=== PATIENT | female | born 1960 | race African-American/Black ===

== ENCOUNTER → 2018-10-28 | Outpatient (CLI) | payer OTHER ==
[~2018-10-28] VITALS: Ht 170.2 cm; Wt 76.3 kg
[~2018-10-28] MED LIST: HYDROCODONE-AP1 EA11 PO; MAXZIDE-25 MG1 EACH PO; NORCO 7.5-3251 EACH PO; PREMARIN0.625 MG PO; RAMIPRIL5 MG PO; SYNTHROID125 MC1 PO
--- NOTE | ~2018-10-28 | HPC ---
[facility] [place] [address] PAIN MANAGEMENT CONSULTATION Name: CHAZ CARDENASCHRISTINE [facility] #: REG CLHeather Conner#: [id number] Admission: 10/28/18 ������������������ Attend Phys: Lucas Kiran MD Discharge: ������������������ Date of : 62 Report #: [id number] THIS REPORT FOR: //name// CC: [facility] physician/PCP JODI Kiran DATE OF SERVICE: 10/28/2018 CHIEF COMPLAINT: Chronic low back pain with spondylosis, chronic opioid use for intractable pain. I am seeing the patient today at her request. She is transitioning back to [facility] for medication management. She was previously seen by Dr. Job Cardenas at [facility]. Dr. Cardenas provided her with hydrocodone 7.5/325, taken on a daily basis to help control back pain. She reports a distant history of sciatica with numbness and foot drop; however, more recently, the pain has been lumbosacral in nature. It is worse with lifting, standing on a hard surface. She gets relief from yoga, Pilates Reformer, neck hammock and reinforcement shoes. She describes her pain as an aching, pulling, gnawing sensation. On an average day, she scores between 4 and 8. For many years dating back at least 2016, she has been taking hydrocodone up to 4 times a day. She has tapered her dose slowly now down to hydrocodone 7.5/325 seventy five tablets per month. Some days, she is able to get by on two. Her morphine milligram equivalent is 18.75. She denies side effects. She is grateful for the pain relief and improvement in her day-to-day activities that she sees when her pain is under good control. She is carefully safeguarded on her medications and there has been no history of lost prescriptions or other concerns. She has completed an opioid risk tool at our request and her score is 1. She is considered at low risk for addiction by the tool. She has completed a functional assessment score suggesting impact of pain and her score is 23. She scores highest for sleep, which is 8/10. She has always had difficulty sleeping. CURRENT MEDICATIONS: Synthroid, ramipril, triamterene, Premarin, hydrocodone 7.5/325, #75 tablets per month. ALLERGIES: BETADINE. PAST MEDICAL HISTORY: Remarkable for tonsillectomy in 1974, hysterectomy in 2001, hypothyroidism, recently diagnosed and hypertension. 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 She and her are now empty nesters. [place] [address] PAIN MANAGEMENT CONSULTATION Name: [facility]ST[facility] CARDENAS [facility] CINTIA Conner#: [id number] Admission: 10/28/18 ������������������ Attend Phys: Lucas Kiran MD Discharge: ������������������ Date of : 62 Report #: [id number] children, 2 adopted children and kept 2 foster children with them through high school. She denies use of tobacco, but enjoys an alcoholic beverage in social setting 2-3 times a week. Her medications are carefully timed around the alcohol and she does not report any interference or complications related to the combination. REVIEW OF SYSTEMS: Positive for night sweats, fatigue, weakness, blurred vision, nocturia, numbness and tingling sensations into the hands, insomnia and some concerning memory loss. She reports that she may have had some plaques noted on her brain, although she was never given a diagnosis of multiple sclerosis or other neurologic disorder. She has not routinely followed with the neurologist. PHYSICAL EXAMINATION: GENERAL: She is a soren 58-year-old. VITAL SIGNS: Blood pressure is 124/83, heart rate 16, respirations 24. She is 5 feet 7 inches, 168 pounds. Her BMI is 26.3. Her pain intensity is 5/10. She moves independently from sitting to standing position, walks without antalgic features. Her gait is steady. HEENT: Normal. Pupils are equal, round, react to light. EOMs are intact. Mucous membranes are moist. CHEST: Clear to auscultation. CARDIAC: Rhythm is regular. MUSCULOSKELETAL: Examination of the spine reveals normal alignment. Good range of motion of the cervical spine, excellent range of motion of the lumbar spine in flexion, extension, rotation, and tfvr-je-olfo tilt. This does not exacerbate pain. Straight leg raising bilaterally is normal. NEUROLOGIC: Reveals normal sensation throughout. Muscle strength is 5/5 in the upper and lower extremities. Deep tendon reflexes are 1-2+ at biceps, triceps and brachioradialis, 2+ at knees and ankles. No evidence of hyperreflexia. IMPRESSION: 1. Lumbar spondylosis. There is no evidence of radicular symptoms at this time. 2. Hypothyroidism, recently diagnosed. 3. Insomnia. 4. Concerns of short term memory loss. We discussed the possible role of opioids and her concerns of memory, but otherwise she has no other cognitive side effects. I am not sure the two are related. She denies other side effects. We talked about the opioid crisis. We discussed the CDC guidelines. We talked about the importance of following the 12-points of the CDC guidelines and I reviewed them for her. I have agreed to transition her medication to our program and at a morphine milligram equivalent of less than 50. I would be [place] [address] [place] [address] PAIN MANAGEMENT CONSULTATION Name: CHAZ CARDENASCHRISTINE [facility] REG CINTIA Kat.#: [id number] Admission: 10/28/18 ������������������ Attend Phys: Lucas Kiran MD Discharge: ������������������ Date of : 62 Report #: [id number] willing to see her longer than monthly intervals. Dr. Cardenas saw her at 3-month intervals. We discussed careful safeguarding the medication. She has younger family members and friends who may be in and out of their home. She has promised me that she will do so. I have discussed the likelihood that at some point in time a random drug screen will be performed, perhaps at the next visit I will see. Medications were provided. Questions were answered. Documents were signed for the opioid agreement and I will see her back in the pain clinic in 2-3 months. ��������������������������������������������� ���������������������������������������� By: ��������������������������������������������� 1612 0255 Lucas Kiran MD /nt
--- NOTE | 2018-10-28 09:22 | NUR ---
Pain Clinic Assessment: 1. History of Osteoarthritis: Not Applicable History of Rheumatoid Arthritis: Not Applicable 2. Height: 5 ft. 7 in. 170.2 cm. Weight: 168.2 lb. oz. 76.295 kg. Patient's BMI: 26.3 3. Vital Signs: BP: Pulse: Resp: Temp: 02 Sat: ECG Mon: 4. Pain Intensity: 5 5. Fall Risk: Dizziness: N Needs help standing or walking: N Fallen in the last 3 months: Y Fall risk comments: 6. Patient on Blood Thinner: None 7. History of Hypertension: Y 8. Opioid Therapy greater than 6 weeks: N Opiate Contract Signed: 9. Risk Assessment Tool Provided: 10. Functional Assessment Tool: 11. Recreational Drug Use: Never Drug Type: Tobacco Use: Never Smoker Tobacco Type: Amount or Packs/day: How Many Years: Alcohol Use: No Frequency: Quant:
[2018-10-28 10:26] VITALS: BP 124/83
== END ==
LOC: PAIN 06:37
DX: M47.816 Spondylosis without myelopathy or radiculopathy, lumbar region (principal); I10 Essential (primary) hypertension; E03.9 Hypothyroidism, unspecified; G47.00 Insomnia, unspecified

== ENCOUNTER → 2019-01-24 | Outpatient (CLI) | payer OTHER ==
[~2019-01-24] VITALS: Ht 170.2 cm; Wt 75.9 kg
[2019-01-24 10:24] VITALS: BP 121/81
--- NOTE | 2019-01-24 10:39 | NUR ---
Pain Clinic Assessment: 1. History of Osteoarthritis: Not Applicable History of Rheumatoid Arthritis: Not Applicable 2. Height: 5 ft. 7 in. 170.2 cm. Weight: 167.4 lb. oz. 75.932 kg. Patient's BMI: 26.2 3. Vital Signs: BP: 121/81 Pulse: 99 Resp: 14 Temp: 02 Sat: 97 ECG Mon: 4. Pain Intensity: 3 5. Fall Risk: Dizziness: N Needs help standing or walking: N Fallen in the last 3 months: N Fall risk comments: 6. Patient on Blood Thinner: None 7. History of Hypertension: Y 8. Opioid Therapy greater than 6 weeks: N Opiate Contract Signed: 9. Risk Assessment Tool Provided: 10. Functional Assessment Tool: 11. Recreational Drug Use: Never Drug Type: Tobacco Use: Never Smoker Tobacco Type: Amount or Packs/day: How Many Years: Alcohol Use: No Frequency: Quant:
--- NOTE | 2019-01-25 10:14 | HPC ---
[facility] [place] [address] PAIN MANAGEMENT CONSULTATION Name: CHAZ CARDENASCHRISTINE [facility] #[facility] REG CINTIA Conner#: [id number] Admission: 01/24/19 Attend Phys: Liz Vargas Discharge: Date of : 62 Report #: [id number] THIS REPORT FOR: //name// CC: Liz [facility] Phys[facility] staff Lucas Kiran MD DATE OF SERVICE: 01/24/2019 CHIEF COMPLAINT: Chronic low back pain with spondylosis, chronic intractable pain. HISTORY OF PRESENT ILLNESS: This is a very pleasant 58-year-old female who returns to the Pain Clinic today for a refill of her medications. She finds these very beneficial in controlling her lower back pain. She had previously seen Dr. Job Cardenas at [facility] and has recently returned to our practice here at [place]. She denies leg pain today. She rates her pain score at 3/10. It is a constant aching, pulling feeling, she said worse with lifting and standing, but she keeps very active, doing yoga and Pilates and finds those very beneficial, as well as her medications. She does take these medications on as needed basis; some days requiring no medication, other days requiring 3 of her hydrocodone. She denies any problems with daytime sleepiness or any constipation from these medications. She would like a refill of these today. ALLERGIES: BETADINE. CURRENT LIST OF MEDICATIONS: Hydrocodone 7.5/325 p.r.n., Maxzide 25 mg, ramipril 5 mg and Synthroid 125 mcg. PQRS: 1. She has arthritic changes in her lumbar spine. Denies any rheumatoid arthritis. 2. Height is 5 feet 7 inches, weight is 167, BMI is 26. 3. Vital signs 121/81, pulse is 99, respirations 14, oxygen sat is 97. 4. Pain score 3/10. 5. Denies dizziness, does not need help walking or standing, has not fallen in the last 3 months. 6. The patient is not on any blood thinners, but does have history of hypertension. 7. Opioid therapy is greater than 6 weeks; therefore, we will have her sign an opioid signed contract. Risk assessment tool is low. Functional assessment is . 8. Recreational drug use, she denies. She is not a smoker and does not drink alcohol. [address] [address] PAIN MANAGEMENT CONSULTATION Name: CHRISTINE CARDENAS [facility] #: REG CINTIA Conner#: [id number] Admission: 01/24/19 Attend Phys: Liz Vargas Discharge: Date of : 62 Report #: [id number] According to the prescription monitoring system, the patient is filling appropriately for her medications in a timely fashion. PHYSICAL EXAMINATION: GENERAL: This is a well-developed, well-nourished 58-year-old female who is alert and orientated, placing her pain score at 3/10 today. HEENT: Normocephalic. Pupils are equal, round and reactive to light. Mucous membranes are moist. MUSCULOSKELETAL: She has good range of motion in her lumbar spine with flexion and extension and rotation does not cause significant pain. She walks with a normal gait. She has pain across the lumbar portion of her back. Muscle strength judged to be 5/5 in her upper and lower extremities. IMPRESSION: 1. Lumbar spondylosis. No radicular symptoms today. 2. Hypothyroidism. 3. Insomnia. 4. Medication management under terms of written opioid agreement. We reviewed the fact that opiate medications are being used to provide analgesia adequate to support activities of daily living, not attempting to achieve a specific pain score on the 0-10 Visual Analog Scale. The current opiate medications are providing sufficient analgesia to allow the patient to participate in activities of daily living. The patient is not exhibiting any aberrant behavior suggestive of drug diversion. The patient is not having any adverse reactions to medications. The patient is not suffering from daytime somnolence or mental acuity changes. The patient is managing opiate-induced constipation with appropriate bxft-ujk-dmizgwi agents and dietary considerations. The patient was counseled on concern for caution with operating a motor vehicle while using opiate medications. PLAN: We discussed treatment options with the patient today. The patient is doing quite well on her current regimen of hydrocodone 7.5. Her current morphine mEq if she does take 3 a day is 18 MME per the CDC guidelines, though some days she is requiring no opioids. We will refill these medications, the electronic scribe to [facility], #75 tablets of hydrocodone 7.5 for 3 months. The patient is instructed to call for an appointment when she fills her last prescription. She verbalizes understanding. The patient is seen today in collaboration with Dr. Lucas Kiran. <ELECTRONICALLY SIGNED> By: Liz Vargas 01/25/19 1014 1107 09 Liz Vargas /gamaliel
== END ==
LOC: PAIN 06:46
DX: M47.816 Spondylosis without myelopathy or radiculopathy, lumbar region (principal); E03.9 Hypothyroidism, unspecified; G47.00 Insomnia, unspecified; Z79.891 Long term (current) use of opiate analgesic; Z79.899 Other long term (current) drug therapy; Z88.8 Allergy status to other drugs, medicaments and biological substances

== ENCOUNTER → 2019-04-25 | Outpatient (CLI) | payer OTHER ==
[~2019-04-25] VITALS: Ht 170.2 cm; Wt 76.0 kg
[2019-04-25 09:37] VITALS: BP 133/88
--- NOTE | 2019-04-25 09:48 | NUR ---
Pain Clinic Assessment: 1. History of Osteoarthritis: NONE History of Rheumatoid Arthritis: NONE 2. Height: 5 ft. 7 in. 170.2 cm. Weight: 167.6 lb. oz. 76.023 kg. Patient's BMI: 26.2 3. Vital Signs: BP: 133/88 Pulse: 73 Resp: 14 Temp: 02 Sat: 97 ECG Mon: 4. Pain Intensity: 5 AVG 5. Fall Risk: Dizziness: N Needs help standing or walking: N Fallen in the last 3 months: N Fall risk comments: 6. Patient on Blood Thinner: None 7. History of Hypertension: Y 8. Opioid Therapy greater than 6 weeks: N Opiate Contract Signed: 10/28/18 9. Risk Assessment Tool Provided: 10. Functional Assessment Tool: 11. Recreational Drug Use: Never Drug Type: Tobacco Use: Never Smoker Tobacco Type: Amount or Packs/day: How Many Years: Alcohol Use: No Frequency: Quant:
--- NOTE | 2019-04-25 15:23 | HPC ---
[facility] [address] [place] [address] PAIN MANAGEMENT CONSULTATION Name: WARE RONALDCHRISTINE [facility] #: REG CINTIA Conner#: [id number] Admission: 04/25/19 Attend Phys: Liz Vargas Discharge: Date of : 62 Report #: [id number] THIS REPORT FOR: cc: KENIA SOOD Physician not on staff Liz Vargas ~ DATE OF SERVICE: 04/25/2019 CHIEF COMPLAINT: Chronic low back pain with spondylosis, chronic intractable pain. HISTORY OF PRESENT ILLNESS: This is a very pleasant 58-year-old female who returns to the pain clinic today for refill of her medications. She states that she is doing quite well on her current regimen. Some days, she requires no hydrocodone, other day, she may require 3 of her hydrocodone 7.5/325 to control her low back pain. She states she has recently undergone a "gut cleanse" with apple cider vinegar. She states she felt that her back pain is improved while she was on this cleanse so she has continued to take the apple cider vinegar on a daily basis. The patient reports that her pain is aching pain, worse in the morning. She feels that it is worse with prolonged standing as well. She does participate in yoga and feels that has been beneficial in helping her low back pain as well as the medications. ALLERGIES: BETADINE. CURRENT LIST OF MEDICATIONS: Hydrocodone 7.5/325, triamterene, ramipril, and Synthroid. PQRS: 1. She has arthritic changes in her lumbar spine. Denies rheumatoid arthritis. 2. Height is 5 feet 7 inches, weight is 167, BMI is 26. 3. Vital signs, blood pressure 133/88, pulse is 73, respirations 14, oxygen sat is 97. 4. Pain score is 5/10. 5. Fall risk denies. She does not need help walking, has not fallen in the last 3 months. The patient is not on any blood thinners, but does take medicine for hypertension. Her opioid therapy is greater than 6 weeks; therefore, an opioid signed contract is on the chart. Risk assessment tool is low. Functional assessment is 23/70. 6. She denies any recreational drug use. She does not smoke and does not drink alcohol. According to the prescription monitoring system, the patient is filling appropriately for her medications, filling them in a timely fashion from Dr. Lucas Kiran. She is due to fill her medications today, though she reports [facility] [address] [place] [address] PAIN MANAGEMENT CONSULTATION Name: CHAZ CARDENASCHRISTINE FIONARoom #: REG CLI Dalila#: [id number] Admission: 04/25/19 Attend Phys: Liz Vargas Discharge: Date of : 62 Report #: [id number] she still has several pills left from her last prescription. Her morphine mEq per day, taking her allotted amount is 18mme. PHYSICAL EXAMINATION: GENERAL: This is a well-developed, well-nourished 58-year-old female who appears her stated age, placing her current pain score at 5/10 today. HEENT: Normocephalic, atraumatic. Pupils equal, round and reactive to light. Mucous membranes are moist. MUSCULOSKELETAL: She has tenderness across the lumbosacral region of her spine, but she has good range of motion with flexion and extension not causing increased pain. She walks with a normal gait. Her lower extremity strength judged to be 5/5 in all major muscle groups with good sensation from L1-S2. IMPRESSION: 1. Lumbar spondylosis. 2. Hypothyroidism. 3. Management of medications under terms of written opioid agreement. We reviewed the fact that opiate medications are being used to provide analgesia adequate to support activities of daily living, not attempting to achieve a specific pain score on the 0-10 Visual Analog Scale. The current opiate medications are providing sufficient analgesia to allow the patient to participate in activities of daily living. The patient is not exhibiting any aberrant behavior suggestive of drug diversion. The patient is not having any adverse reactions to medications. The patient is not suffering from daytime somnolence or mental acuity changes. The patient is managing opiate-induced constipation with appropriate eroa-rfq-dvuyfgw agents and dietary considerations. The patient was counseled on concern for caution with operating a motor vehicle while using opiate medications. PLAN: 1. We discussed treatment options with the patient today. We will continue her hydrocodone 7.5/325 for 75 tablets. The patient is allowed to take up to 3 max per day. These will be sent electronically by Dr. Lucas Kiran to [facility]. 2. The patient denies any problems with daytime somnolence or constipation as a result of her medications. 3. The patient is seen in collaboration with Dr. Lucas Kiran. <ELECTRONICALLY SIGNED> By: Liz Vargas 04/25/19 1523 1013 1035 Liz Vargas /gamaliel
== END ==
LOC: PAIN 06:37
DX: M47.816 Spondylosis without myelopathy or radiculopathy, lumbar region (principal); E03.9 Hypothyroidism, unspecified; F11.20 Opioid dependence, uncomplicated; G89.29 Other chronic pain; Z88.8 Allergy status to other drugs, medicaments and biological substances; Z79.899 Other long term (current) drug therapy

== ENCOUNTER → 2019-07-25 | Outpatient (CLI) | payer OTHER | LOC: PAIN 07:02 | DX: M47.816 Spondylosis without myelopathy or radiculopathy, lumbar region (principal); E03.9 Hypothyroidism, unspecified; Z79.899 Other long term (current) drug therapy; Z91.09 Other allergy status, other than to drugs and biological substances; Z79.891 Long term (current) use of opiate analgesic ==

== ENCOUNTER → 2019-10-20 | Outpatient (CLI) | payer OTHER ==
[~2019-10-20] VITALS: Ht 170.2 cm; Wt 76.8 kg
[~2019-10-20] MED LIST changes: +HYDROCODON-ACE1 EAC8 PO; +TRAZODONE HCL50 MG PO; +ZINC SULFATE220 MG PO
--- NOTE | ~2019-10-20 | HPC ---
[facility] [address] [place] [address] PAIN MANAGEMENT CONSULTATION Name: CHAZ CARDENASCHRISTINE [facility] #: REG CLHeather North.#: [id number] Admission: 10/20/19 Attend Phys: Lucas Kiran MD Discharge: Date of : 62 Report #: [id number] THIS REPORT FOR: cc: NATALY BURGOS Physician not on staff Lucas Kiran MD ~ CC: Physician staff Lucas Del Castillo MD Followup visit for chronic intractable low back pain with spondylosis. The patient is here today in followup for medication, which has been provided in treatment of chronic low back pain for now around 10 years. She was initially started on medication by her primary care physician and then was maintained by Dr. Job Cardenas who left our practice 2 years ago. I have been providing her medications for her along with our advanced nurse practitioner, JORDON Cross and she is here today to see me to discuss her chronic pain and ongoing use of opioid medication. She reports that she is doing well. She has no side effects whatsoever. She has tried to go off the medication and finds that she can do so, but the pain increases after a couple of days and it affects her day-to-day activities, and says she sees both improvement in activities and pain control. This in turn improves her mood, she feels more upbeat and able to perform her day-to-day activities. She understands the importance of safeguarding all of her medications and we have reviewed our opioid agreement in some detail today. I reviewed her prescription drug monitoring information and she picks up her medicines almost the day in the first week of each month. Her opioid medication is hydrocodone 7.5/325 and she is allowed 75 tablets per month, which she takes roughly on schedule. Starts the day with a tablet and then take a second tablet later in the day. If the pain is severe, she will take her third tablet in the evening. Her MME averages at 18. PHYSICAL EXAMINATION: GENERAL: She is pleasant, alert and oriented, she is upbeat and positive. No signs of depression, anxiety or overmedication. She moves independently from sitting to standing position. She has some mild discomfort across the lumbosacral segment. Strength in lower extremities is good. She has no weakness or numbness. Deep tendon reflexes are normal. IMPRESSION: 1. [place] [address] PAIN MANAGEMENT CONSULTATION Name: CHRISTINE CARDENAS [facility] #: REG CINTIA Conner#: [id number] Admission: 10/20/19 Attend Phys: Lucas Kiran MD Discharge: Date of : 62 Report #: [id number] 2. Management of high risk medications under terms of written opioid agreement. I have renewed her medications for her electronically. At her low MME and stable use of medicine we see her at 3-month intervals. I stressed again the importance of keeping her medications safeguarded and for her use only. She is given me her word that all medications were protected from others. Followup visit planned in 3 months. By: 1600 1710 Lucas Kiran MD /nt
[2019-10-20 10:30] VITALS: BP 121/93
--- NOTE | 2019-10-20 11:02 | NUR ---
Pain Clinic Assessment: 1. History of Osteoarthritis: lumbar History of Rheumatoid Arthritis: NONE 2. Height: 5 ft. 7 in. 170.2 cm. Weight: 169.4 lb. oz. 76.839 kg. Patient's BMI: 26.5 3. Vital Signs: BP: 121/93 Pulse: 80 Resp: 14 Temp: 02 Sat: 96 ECG Mon: 4. Pain Intensity: 8 5. Fall Risk: Dizziness: N Needs help standing or walking: N Fallen in the last 3 months: N Fall risk comments: 6. Patient on Blood Thinner: None 7. History of Hypertension: Y 8. Opioid Therapy greater than 6 weeks: N Opiate Contract Signed: 10/28/18 9. Risk Assessment Tool Provided: 10. Functional Assessment Tool: 11. Recreational Drug Use: Never Drug Type: Tobacco Use: Never Smoker Tobacco Type: Amount or Packs/day: How Many Years: Alcohol Use: Yes Frequency: Weekly Quant: 2 glasses
== END ==
LOC: PAIN 06:53
PROVIDERS: ATTEND Anesthesiology Pain Medicine
DX: M47.26 Other spondylosis with radiculopathy, lumbar region (principal); F11.20 Opioid dependence, uncomplicated

== ENCOUNTER → 2020-01-16 | Outpatient (CLI) | payer OTHER ==
[~2020-01-16] VITALS: Ht 170.2 cm; Wt 78.7 kg
[2020-01-16 10:14] VITALS: BP 133/85
--- NOTE | 2020-01-16 10:23 | NUR ---
Pain Clinic Assessment: 1. History of Osteoarthritis: lumbar History of Rheumatoid Arthritis: NONE 2. Height: 5 ft. 7 in. 170.2 cm. Weight: 173.4 lb. oz. 78.654 kg. Patient's BMI: 27.2 3. Vital Signs: BP: 133/85 Pulse: 81 Resp: 16 Temp: 02 Sat: 94 ECG Mon: 4. Pain Intensity: 6-7 BEFORE MED TODAY,2NOW 5. Fall Risk: Dizziness: N Needs help standing or walking: N Fallen in the last 3 months: Y Fall risk comments: 6. Patient on Blood Thinner: None 7. History of Hypertension: Y 8. Opioid Therapy greater than 6 weeks: N Opiate Contract Signed: 10/28/18 9. Risk Assessment Tool Provided: 10. Functional Assessment Tool: 11. Recreational Drug Use: Never Drug Type: Tobacco Use: Never Smoker Tobacco Type: Amount or Packs/day: How Many Years: Alcohol Use: Yes Frequency: Weekly Quant: 1-2 BOTTLES A WEEK
--- NOTE | 2020-01-17 13:45 | HPC ---
[facility] [place] [address] PAIN MANAGEMENT CONSULTATION Name: CHRISTINE CARDENASRoom #: REG CINTIA Conner#: [id number] Admission: 01/16/20 Attend Phys: Liz Vargas Discharge: Date of : 62 Report #: [id number] THIS REPORT FOR: cc: NATALY BURGOS Physician not on staff Liz Vargas ~ CC: Liz BURGOS DATE OF SERVICE: 01/16/2020 CHIEF COMPLAINT: Chronic intractable low back pain with spondylosis. HISTORY OF PRESENT ILLNESS: This is a pleasant 59-year-old female who returns to the pain clinic today for refill of her medications. Today, she is reporting a pain score of 2/10 currently, but it was 6-7 before she took her hydrocodone this morning. She does find her medications very helpful in controlling her low back pain. She does not take her medicines on a daily basis. The patient states that her pain is in her low back and also in her left foot. She recently fell down the stairs because she tripped over her dog. She was wearing a boot for several weeks and is finally without it. She said during that time, she did have increased pain, but she was able to take her hydrocodone and did not get any extra medicines from the ER physician. She does report overall standing and lifting are more painful to her and causes significant ache and pressure in her low back. She believes that using yoga, stretching techniques and her medication as well as heat have been beneficial. The patient does report going to move to [place] sometime early next year and is wondering if we know any physicians in the [place] area that may take care of her at a pain clinic. ALLERGIES: BETADINE. CURRENT LIST OF MEDICATIONS: Hydrocodone 7.5/325 p.r.n., trazodone, zinc, Maxzide and Synthroid. PQRS: 1. She has a history of osteoarthritis in her lumbar spine. Denies any rheumatoid arthritis. 2. Height is 5 feet 7 inches, weight is 173. BMI is 27. 3. Vital signs; blood pressure 133/85, pulse is 81, respirations 16, oxygen sat is 94. 4. Pain score is 2-7 depending on the time a day. 5. Denies dizziness, does not need help walking or standing, has fallen down in the last 3 months and did seek medical attention. [address] [address] PAIN MANAGEMENT CONSULTATION Name: CHRISTINE CARDENASRoom #: REG CLI Dalila#: [id number] Admission: 01/16/20 Attend Phys: Liz Vargas Discharge: Date of : 62 Report #: [id number] 6. The patient is not on any blood thinners, but does take medicine for hypertension. Her opioid therapy is greater than 6 weeks; therefore, an opioid signed contract is on the chart. 7. Risk assessment is low. Functional assessment is . 8. Recreational drug use, she denies. She is not a smoker and occasionally drinks alcohol. According to the prescription monitoring system, the patient is filling appropriately for her medications. Her morphine milliequivalent is 15 MME per day. PHYSICAL EXAMINATION: GENERAL: This is alert and orientated, very pleasant, well-developed, well-nourished 59-year-old, rating her pain score from 2-10 today. HEENT: Normocephalic, atraumatic. Extraocular eye muscles are intact. She is wearing a mask. MUSCULOSKELETAL: She has discomfort in the lumbosacral region of her spine and in her left foot. No swelling noted in her foot today. She has a normal gait. Lower extremity strength is symmetrical at 5/5. Deep tendon reflexes are normal. IMPRESSION: 1. Lumbar spondylosis, left foot pain due to recent fall. 2. Management of high risk medications under written in terms of opioid agreement. We reviewed the fact that opiate medications are being used to provide analgesia adequate to support activities of daily living, not attempting to achieve a specific pain score on the 0-10 Visual Analog Scale. The current opiate medications are providing sufficient analgesia to allow the patient to participate in activities of daily living. The patient is not exhibiting any aberrant behavior suggestive of drug diversion. The patient is not having any adverse reactions to medications. The patient is not suffering from daytime somnolence or mental acuity changes. The patient is managing opiate-induced constipation with appropriate bikf-opw-gspgeis agents and dietary considerations. The patient was counseled on concern for caution with operating a motor vehicle while using opiate medications. PLAN: 1. We discussed treatment options with the patient today. The patient feels overall she is doing quite well on her current regimen. She is questioning about tolerance and dependency. We did discuss this in depth stating that she does take her medications sparingly, not on a daily basis. This does help with reducing dependency. She questioned whether we should rotate her to a different type of medicine. We did discuss oxycodone, but explained lowest most effective dose to the patient, also with her moving to [place] a primary care physician [facility] [address] [place] [address] PAIN MANAGEMENT CONSULTATION [facility] #: IONA HOFFMANHeather Conner#: [id number] Admission: 01/16/20 Attend Phys: Liz Vargas Discharge: Date of : 62 Report #: [id number] may be willing to write her hydrocodone, thus not needing a pain specialist. I believe most physicians would send her to a pain specialist if she was on stronger medicine of oxycodone. It was decided to continue on her current dose and we will have Dr. Lucas Kiran send 3 months of this medication. 2. We did discuss obtaining her records to take with her to [place]. Hopefully, we will see one time prior to her moving to give her a supply in the interim until she finds another physician. 3. The patient is seen today in collaboration with Dr. Lucas Kiran. <ELECTRONICALLY SIGNED> By: Liz Vargas 01/17/20 1345 [id number] Liz Vargas /nt
== END ==
LOC: PAIN 06:43
PROVIDERS: ATTEND Clinical Nurse Specialist Adult Health
DX: M47.816 Spondylosis without myelopathy or radiculopathy, lumbar region (principal); G89.29 Other chronic pain

== ENCOUNTER → 2020-04-16 | Outpatient (CLI) | payer OTHER ==
[~2020-04-16] VITALS: Ht 170.2 cm; Wt 77.6 kg
[2020-04-16 09:43] VITALS: BP 139/87
--- NOTE | 2020-04-16 09:50 | NUR ---
Pain Clinic Assessment: 1. History of Osteoarthritis: lumbar History of Rheumatoid Arthritis: NONE 2. Height: 5 ft. 7 in. 170.2 cm. Weight: 171.0 lb. oz. 77.565 kg. Patient's BMI: 26.8 3. Vital Signs: BP: 139/87 Pulse: 73 Resp: 18 Temp: 02 Sat: 95 ECG Mon: 4. Pain Intensity: 3 5. Fall Risk: Dizziness: N Needs help standing or walking: N Fallen in the last 3 months: N Fall risk comments: 6. Patient on Blood Thinner: None 7. History of Hypertension: Y 8. Opioid Therapy greater than 6 weeks: Y Opiate Contract Signed: 10/28/18 9. Risk Assessment Tool Provided: 10. Functional Assessment Tool: 11. Recreational Drug Use: Never Drug Type: Tobacco Use: Never Smoker Tobacco Type: Amount or Packs/day: How Many Years: Alcohol Use: Yes Frequency: Weekly Quant: 1-2 BOTTLES/WEEK
--- NOTE | 2020-04-17 08:17 | HPC ---
[facility] [place] [address] PAIN MANAGEMENT CONSULTATION Name: WARE CHRISTINE CARDENAS [facility] #: REG CINTIA Conner#: [id number] Admission: 04/16/20 Attend Phys: Liz Vargas Discharge: Date of : 62 Report #: [id number] THIS REPORT FOR: cc: NATALY BURGOS Physician not on staff Liz Vargas ~ DATE OF SERVICE: 04/16/2020 CHIEF COMPLAINT: Chronic intractable low back pain with spondylosis. HISTORY OF PRESENT ILLNESS: This is a pleasant 59-year-old female who returns to the pain clinic today for a refill of her medications. She is in the process of trying to move to [place], but unfortunately due to COVID, things have slowed down. She is unsure when she will be making that move. She thought this would be her last visit in our clinic, but now she is unsure. So today, she is requesting 3 months of her medications to be filled of her hydrocodone. She does report her pain score of 3/10 today, feels like the hydrocodone is very beneficial in helping her low back pain that she reports as a heavy pressure, constant feeling. She has pain that does occasionally affect her left foot as well. She tries to stay active, doing yoga stretches, and also feels that her Tempur-Pedic mattress as well as hot showers have been beneficial in helping reduce her pain. She denies any constipation issues from her opioid medications and would like refills sent to her pharmacy. ALLERGIES: SOAP AND IODINE. CURRENT LIST OF MEDICATIONS: Hydrocodone 7.5/325 up to 3 times a day, trazodone, zinc, triamterene/hydrochlorothiazide, and Synthroid. PQRS: 1. She has history of spondylosis in her back. Denies any rheumatoid arthritis. 2. Height is 5 feet 7 inches, weight is 171, BMI is 26. Vital signs 139/87, pulse is 73, respirations 18, oxygen sat is 95%. 3. Pain score is 3/10. 4. Denies dizziness, does not need help walking or standing, has not fallen in the last 3 months. 5. The patient is not on any blood thinners, but does take medicine for hypertension. Her opioid therapy is greater than 6 weeks; therefore, an opioid signed contract is on the chart. Risk assessment is 0. Functional assessment is . 6. Recreational drug use, she denies. She is not a smoker and occasionally drinks alcohol. According to the prescription monitoring system, she is filling appropriately. Her morphine milliequivalent is less than 20 MME per day. [place] [address] PAIN MANAGEMENT CONSULTATION Name: CHRISTINE CARDENAS [facility] #: IONA Conner#: [id number] Admission: 04/16/20 Attend Phys: Liz Vargas Discharge: Date of : 62 Report #: [id number] her medications today. PHYSICAL EXAMINATION: GENERAL: This is alert and orientated, well-developed, well-nourished, well-hydrated 59-year-old female who appears her stated age, placing her current pain score at 3/10. HEENT: Normocephalic, atraumatic. Extraocular eye muscles are intact. She is wearing a mask. MUSCULOSKELETAL: She has discomfort in the lower lumbar region that is increased with flexion and extension with occasional left foot pain. No swelling or no pain noted today. She has a normal gait. Her lower extremity strength is symmetrical at 5/5 with good sensation from L1-S2. IMPRESSION: 1. Lumbar spondylosis. 2. Left foot pain, resolving. 3. Management of high risk medications under terms of written opioid agreement. PLAN: 1. We discussed treatment options with the patient today. The patient feels the hydrocodone is very beneficial in helping reduce her pain, taking it as needed throughout the day with very minimal side effects of constipation or daytime somnolence. She would like to continue, so we will have Dr. Lucas Kiran, who did see the patient as well today, send her hydrocodone 7.5/325, #75, to her pharmacy for today, 4-week and 8-week release. 2. We did discuss the COVID vaccine. She is on several lists, so she does have an autoimmune disorder. She is hopeful that she will be able to obtain one soon despite her age. She does stay safe at home, wearing a mask and not socializing. 3. The patient is seen today in collaboration with Dr. Lucas Kiran. She will call if she would like us to contact [employer] to find a pain physician in [place] if she does move before her next appointment. <ELECTRONICALLY SIGNED> By: Liz Vargas 04/17/20 0817 [id number] Liz Vargas /gamaliel
== END ==
LOC: PAIN 06:47
PROVIDERS: ATTEND Clinical Nurse Specialist Adult Health
DX: M47.816 Spondylosis without myelopathy or radiculopathy, lumbar region (principal); G89.29 Other chronic pain; M79.672 Pain in left foot; F11.20 Opioid dependence, uncomplicated; Z88.8 Allergy status to other drugs, medicaments and biological substances; Z79.899 Other long term (current) drug therapy

== ENCOUNTER → 2020-07-12 | Outpatient (CLI) | payer OTHER ==
[~2020-07-12] VITALS: Ht 170.2 cm; Wt 80.7 kg
[2020-07-12 10:13] VITALS: BP 123/70
--- NOTE | 2020-07-12 10:22 | NUR ---
Pain Clinic Assessment: 1. History of Osteoarthritis: lumbar History of Rheumatoid Arthritis: NONE 2. Height: 5 ft. 7 in. 170.2 cm. Weight: 178.0 lb. oz. 80.740 kg. Patient's BMI: 27.9 3. Vital Signs: BP: 123/70 Pulse: 67 Resp: 16 Temp: 02 Sat: 97 ECG Mon: 4. Pain Intensity: 3 5. Fall Risk: Dizziness: N Needs help standing or walking: N Fallen in the last 3 months: N Fall risk comments: 6. Patient on Blood Thinner: None 7. History of Hypertension: Y 8. Opioid Therapy greater than 6 weeks: Y Opiate Contract Signed: 10/28/18 9. Risk Assessment Tool Provided: 10. Functional Assessment Tool: 11. Recreational Drug Use: Never Drug Type: Tobacco Use: Never Smoker Tobacco Type: Amount or Packs/day: How Many Years: Alcohol Use: Yes Frequency: Quant:
== END ==
LOC: PAIN 07:04
PROVIDERS: ATTEND Clinical Nurse Specialist Adult Health
DX: M47.816 Spondylosis without myelopathy or radiculopathy, lumbar region (principal); G89.4 Chronic pain syndrome; I10 Essential (primary) hypertension; Z72.89 Other problems related to lifestyle; Z79.891 Long term (current) use of opiate analgesic; Z79.899 Other long term (current) drug therapy; Z88.8 Allergy status to other drugs, medicaments and biological substances